=== PATIENT | female | born 1970 | race African-American/Black ===

== ENCOUNTER 2018-05-31 19:51 | Emergency (ER) | payer SELFPAY ==
[~2018-05-31] VITALS: Ht 154.9 cm; Wt 81.4 kg
[2018-05-31] MEDS ORDERED: PERCOCET 5/31 TABLET PO (20:39)
[2018-05-31] MEDS ORDERED: MOTRIN600 MG PO (20:39)
[2018-05-31 21:12] VITALS: BP 123/104
== END 2018-05-31 21:14 | disposition home or self-care (01) ==
LOC: EME 19:51
DX: T22.291A Burn of second degree of multiple sites of right shoulder and upper limb, except wrist and hand, initial encounter (principal); T23.271A Burn of second degree of right wrist, initial encounter; X04.XXXA Exposure to ignition of highly flammable material, initial encounter; Y93.G3 Activity, cooking and baking; F17.200 Nicotine dependence, unspecified, uncomplicated
CPT/HCPCS: 99281; 99283

== ENCOUNTER 2018-06-05 19:21 | Emergency (ER) | payer SELFPAY ==
[~2018-06-05] VITALS: Ht 154.9 cm; Wt 81.1 kg
[~2018-06-05 19:21] MED LIST: MOTRIN600 MG PO; PERCOCET 5/31 TABLET PO
[2018-06-05 19:38] VITALS: BP 154/98
[2018-06-06] MEDS ORDERED: SILVADENE20 GM TP (19:15)
[2018-06-06] MEDS ORDERED: PERCOCET 5/31 TABLET PO (19:16)
[2018-06-06] MEDS ORDERED: MOTRIN600 MG PO (19:16)
== END 2018-06-05 21:20 | disposition left against medical advice (07) ==
LOC: EME 19:21
DX: M79.601 Pain in right arm (principal); Z53.21 Procedure and treatment not carried out due to patient leaving prior to being seen by health care provider

== ENCOUNTER → 2018-06-06 | Emergency (ER) | payer SELFPAY ==
[~2018-06-06] VITALS: Ht 154.9 cm; Wt 81.5 kg
[~2018-06-06] MED LIST changes: +SILVADENE20 GM TP
[2018-06-06 19:39] VITALS: BP 152/88
== END | disposition home or self-care (01) ==
LOC: EME 18:34
DX: T22.211D Burn of second degree of right forearm, subsequent encounter (principal)
CPT/HCPCS: 99281; 99284